=== PATIENT | male | born 1990 | race American Indian/Alaskan Native ===

== ENCOUNTER 2021-05-16 21:04 | Emergency (ER) | payer SELFPAY ==
[2021-05-16 21:14] VITALS: BP 143/72
--- NOTE | 2021-05-16 21:41 | Emergency Department Report ---
ED Back Pain/Injury HPI - General Chief Complaint: Back Pain/Injury Stated Complaint: BACK PAIN Time Seen by Provider: 05/16/21 21:22 Source: patient Limitations: No Limitations - History of Present Illness Initial Comments: The patient was evaluated in the emergency department for symptoms described in the history of present illness. He/she was evaluated in the context of the global COVID-19 pandemic, which necessitated consideration that the patient might be at risk for infection with the virus that causes COVID-19. Institutional protocols and algorithms that pertain to the evaluation of patients at risk for COVID-19 are in a state of rapid change based on information released by regulatory bodies including the CDC and federal and state organizations. These policies and algorithms were followed during the patient's care in the emergency department. Please note that these policies, procedures and recommendations changed on a rapid basis. 31-year-old morbidly obese -[place] male presents to the emergency room complaining of lower back pain that radiates down his right leg for the last 3 days. Patient states that this makes it better. He denies any blood in his urine denies any trauma. States has been taking Advil 2 tablets. 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 He is unvaccinated. MD Complaint: back pain Onset/Timin Similar Symptoms Previously: No Radiation: right leg Severity: severe Severity scale (0 -10): 10 Quality: burning, sharp Consistency: constant Improves With: none Worsens With: movement, sitting upright Context: while lifting Associated Symptoms: denies other symptoms. denies: difficulty walking, difficulty urinating, abdominal pain - Related Data Previous Rx's Medication Instructions Recorded Last Taken Type Diclofenac 1% [Diclofenac 1% 20 applic TP BID PRN #1 tube 05/16/21 Unknown Rx topical gel] Diclofenac Sodium 50 mg PO Q8H PRN #15 tablet. 05/16/21 Unknown Rx predniSONE [Deltasone] 50 mg PO QDAY #5 tab 05/16/21 Unknown Rx ED Review of Systems ROS: Stated complaint: BACK PAIN Other details as noted in HPI Comment: All other systems reviewed and negative ED Past Medical Hx - Past Medical History Previous Medical History?: Yes Hx Asthma: Yes - Surgical History Past Surgical History?: No - Social History Smoking Status: Never Smoker Substance Use Type: None - Medications Home Medications: Home Medications Medication Instructions Recorded Confirmed Last Taken Type Diclofenac 1% [Diclofenac 1% 20 applic TP BID PRN #1 tube 05/16/21 Unknown Rx topical gel] Diclofenac Sodium 50 mg PO Q8H PRN #15 tablet. 05/16/21 Unknown Rx predniSONE [Deltasone] 50 mg PO QDAY #5 tab 05/16/21 Unknown Rx ED Physical Exam - General Limitations: No Limitations General appearance: alert, in no apparent distress, obese - Head Head exam: Present: atraumatic, normocephalic - Eye Eye exam: Present: normal appearance - ENT ENT exam: Present: normal external ear exam - Neck Neck exam: Present: normal inspection, full ROM - Respiratory Respiratory exam: Absent: accessory muscle use - Cardiovascular Cardiovascular Exam: Present: regular rate - GI/Abdominal GI/Abdominal exam: Present: soft. Absent: distended, tenderness - Back Exam Back exam: Present: full ROM. Absent: vertebral tenderness - Expanded Back Exam Expanded Back exam: Sciatic Notch Tenderness: Left, Right (Right greater than left), Positive Straight Leg Raise: Right, Left - Neurological Exam Neurological exam: Present: alert, oriented X3, normal gait - Psychiatric Psychiatric exam: Present: normal affect, normal mood - Skin Skin exam: Present: warm, dry, intact, normal color. Absent: rash ED Course Vital Signs 05/16/21 21:11 Temperature 99.2 F Pulse Rate 117 H Respiratory 18 Rate Blood Pressure 143/72 O2 Sat by Pulse 98 Oximetry ED Medical Decision Making - Medical Decision Making 31-year-old morbidly obese -[place] male presents to the emergency room complaining of lower back pain that radiates down his right leg for the last 3 days. Patient states that this makes it better. He denies any blood in his urine denies any trauma. States has been taking Advil 2 tablets. 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 He is unvaccinated. Patient be discharged home on prednisone 60 mg p.o. for 5 days and diclofenac's 50 mg every 8 hours for 5 days. Patient is instructed to follow-up with her primary care provider. Do daily stretches. Lose weight. Increase fluid intake. Critical care attestation.: If time is entered above; I have spent that time in minutes in the direct care of this critically ill patient, excluding procedure time. ED Disposition Clinical Impression: Back pain without radiculopathy Disposition: HOME / SELF CARE / HOMELESS Is pt being admited?: No Does the pt Need Aspirin: No Condition: Stable Instructions: Radicular Pain, Acute Back Pain, Adult Additional Instructions: Please take medication as prescribed. Increase your fluid intake. Do your stretches. Lose weight and follow-up with your primary care provider. Prescriptions: predniSONE [Deltasone] 50 mg PO QDAY #5 tab Diclofenac 1% [Diclofenac 1% topical gel] 20 applic TP BID PRN #1 tube PRN Reason: Pain, Chest/Cardiac Diclofenac Sodium 50 mg PO Q8H PRN #15 tablet.dr HERRING Reason: Pain , Severe (7-10) Referrals: SHIRIN PANCHAL MD [Staff Physician] - 3-5 Days Forms: Work/School Release Form(ED) Time of Disposition: 21:44
--- NOTE | 2021-05-16 21:45 | Emergency Department Report ---
ED Back Pain/Injury HPI - General Chief Complaint: Back Pain/Injury Stated Complaint: BACK PAIN Time Seen by Provider: 05/16/21 21:22 Source: patient Limitations: No Limitations ED Review of Systems ROS: Stated complaint: BACK PAIN Other details as noted in HPI ED Past Medical Hx - Past Medical History Previous Medical History?: Yes Hx Asthma: Yes - Surgical History Past Surgical History?: No - Social History Smoking Status: Never Smoker Substance Use Type: None ED Physical Exam - General Limitations: No Limitations ED Course Vital Signs 05/16/21 21:11 Temperature 99.2 F Pulse Rate 117 H Respiratory 18 Rate Blood Pressure 143/72 O2 Sat by Pulse 98 Oximetry Critical care attestation.: If time is entered above; I have spent that time in minutes in the direct care of this critically ill patient, excluding procedure time. ED Disposition Condition: Stable
== END 2021-05-16 21:44 | disposition home or self-care (01) ==
LOC: ED 21:04
DX: M54.16 Radiculopathy, lumbar region (principal); J45.909 Unspecified asthma, uncomplicated; Z79.899 Other long term (current) drug therapy
CPT/HCPCS: 99281